=== PATIENT | male | born 1950 | race Hispanic/Latino ===

== ENCOUNTER 2020-01-27 11:48 | Inpatient (IN) | payer BC ==
[~2020-01-27] VITALS: Ht 157.5 cm; Wt 101.9 kg
[2020-01-27 13:36] LABS: BASOPHILS # (AUTO) 0.1 (0.0-0.1); BASOPHILS % 0.6 % (0.0-1.0); EOSINOPHILS # (AUTO) 0.3 (0.0-0.4); EOSINOPHILS % 3.6 % (0.0-6.0); HEMATOCRIT 32.9 % (38.2-49.6); HEMOGLOBIN 10.9 g/dL (14.0-18.0); LYMPHOCYTES # (AUTO) 1.3 (1.0-3.2); MEAN CORPUSCULAR HEMOGLOBIN 28.3 pg (28-32); MEAN CORPUSCULAR HGB CONC 33.1 g/dL (31-35); MEAN CORPUSCULAR VOLUME 85.5 fL (81-99); MONOCYTES # (AUTO) 0.5 (0.2-0.8); MONOCYTES % 6.6 % (4.4-11.3); NEUTROPHILS # (AUTO) 5.9 (2.1-6.9); NEUTROPHILS % 73.1 % (38.7-80.0); PLATELET COUNT 322 x10e3/uL (140-360); RED BLOOD COUNT 3.85 x10e6/uL (4.3-5.7); RED CELL DISTRIBUTION WIDTH 13.3 % (11.7-14.4)
[2020-01-27 13:57] LABS: CREATINE KINASE MB 1.5 ng/mL (0-5.0)
[2020-01-27 15:21] LABS: ALBUMIN 2.6 g/dL (3.5-5.0); ALBUMIN/GLOBULIN RATIO 0.8 (0.8-2.0); CALCIUM 7.9 mg/dL (8.4-10.2); CREATININE, SERUM 2.87 mg/dL (0.72-1.25)
[2020-01-27] MEDS ORDERED: CARVEDILOL3.125 MG PO (18:12)
[2020-01-27] MEDS ORDERED: VITAMIN D2 (18:12)
[2020-01-27] MEDS ORDERED: FERROUS SULFAT325 MG PO (18:12)
[2020-01-27] MEDS ORDERED: NOVOLIN N100 UNIT/1 (18:12)
[2020-01-27] MEDS ORDERED: ASPIRIN EC81 MG PO (18:12)
[2020-01-27] MEDS ORDERED: ATORVASTATIN CA40 MG PO (18:12)
[2020-01-27] MEDS ORDERED: LOSARTAN POTASS50 MG PO (18:12)
[2020-01-27] MEDS ORDERED: HYDRALAZINE HCL25 MG PO (18:12)
[2020-01-27] MEDS ORDERED: FUROSEMIDE40 MG PO (18:13)
[2020-01-27] MEDS: SODIUM CHLORIDE 0.9% 1000ML 1,000 ML IV SCH (18:17)
[2020-01-27 19:39] LABS: CLARITY,URINE SL CLOUDY (CLEAR); COLOR,URINE YELLOW (YELLOW); KETONES,URINE NEGATIVE (NEGATIVE); LEUKOCYTE ESTERASE ,URINE NEGATIVE (NEGATIVE); NITRITE,URINE NEGATIVE (NEGATIVE); PROTEIN,URINE DIPSTICK >=300 (NEGATIVE); URINE UROBILINOGEN 0.2 mg/dL (0.2 - 1)
[2020-01-27 19:55] LABS: BACTERIA,URINE MODERATE /HPF; EPITHELIAL CELLS,URINE FEW /LPF; WBC,URINE (MAN) 0-5 /HPF (0-5)
[2020-01-27] MEDS ORDERED: CARVEDILOL 3.125 MG TAB PO ONE (20:15)
[2020-01-27] MEDS ORDERED: LOSARTAN POTASSIUM 100 MG TAB PO ONE (20:15)
[2020-01-27] MEDS ORDERED: LOSARTAN POTASSIUM 25 MG TAB ONE (20:20)
[2020-01-27 21:04] VITALS: BP 182/80
[2020-01-27 21:53] VITALS: BP 181/90
[2020-01-28] VITALS (8 sets, daily range): BP systolic 153–194; BP diastolic 66–89
[2020-01-28] MEDS: SODIUM CHLORIDE 0.9% 1000ML 1,000 ML IV SCH ×4 (01:30→23:43)
[2020-01-28 06:17] LABS: BASOPHILS # (AUTO) 0.1 (0.0-0.1); BASOPHILS % 0.9 % (0.0-1.0); EOSINOPHILS # (AUTO) 0.3 (0.0-0.4); EOSINOPHILS % 3.5 % (0.0-6.0); HEMATOCRIT 29.3 % (38.2-49.6); HEMOGLOBIN 9.4 g/dL (14.0-18.0); LYMPHOCYTES # (AUTO) 1.4 (1.0-3.2); LYMPHOCYTES % 17.9 % (18.0-39.1); MEAN CORPUSCULAR HEMOGLOBIN 27.5 pg (28-32); MEAN CORPUSCULAR HGB CONC 32.1 g/dL (31-35); MEAN CORPUSCULAR VOLUME 85.7 fL (81-99); MONOCYTES # (AUTO) 0.7 (0.2-0.8); NEUTROPHILS # (AUTO) 5.3 (2.1-6.9); NEUTROPHILS % 68.6 % (38.7-80.0); PLATELET COUNT 287 x10e3/uL (140-360); RED BLOOD COUNT 3.42 x10e6/uL (4.3-5.7); RED CELL DISTRIBUTION WIDTH 13.2 % (11.7-14.4)
[2020-01-28 07:03] LABS: ALBUMIN 2.3 g/dL (3.5-5.0); ALBUMIN/GLOBULIN RATIO 0.8 (0.8-2.0); ANION GAP 9.8 mmol/L (8-16); CALCIUM 7.7 mg/dL (8.4-10.2); CREATININE, SERUM 2.65 mg/dL (0.72-1.25); POTASSIUM 3.8 mmol/L (3.5-5.1)
[2020-01-28] MEDS ORDERED: CARVEDILOL 3.125 MG TAB PO SCH ×2 (09:00→17:00)
[2020-01-28] MEDS: LOSARTAN POTASSIUM 100 MG TAB PO SCH ×2 (09:49→16:04)
[2020-01-28] MEDS: HYDRALAZINE HCL 20 MG/ML VIAL IV PRN (11:00)
[2020-01-28] MEDS: CARVEDILOL 12.5 MG TAB PO SCH (16:04)
[2020-01-28] MEDS: NPH, HUMAN INSULIN ISOPHANE 100 UNIT/1 ML 3ML VIAL SQ SCH (16:05)
[2020-01-28] MEDS ORDERED: LOSARTAN POTASSIUM 100 MG TAB PO SCH (17:00)
[2020-01-28] MEDS ORDERED: TAMSULOSIN HCL 0.4 MG CAP PO SCH (21:00)
[2020-01-28] MEDS: TERAZOSIN HCL 1 MG CAP PO SCH (21:01)
[2020-01-28] MEDS: ATORVASTATIN 40 MG TAB PO SCH (21:01)
[2020-01-28] MEDS: HYDRALAZINE HCL 25 MG TAB PO SCH (21:02)
[2020-01-29] VITALS (8 sets, daily range): BP systolic 133–189; BP diastolic 61–97
[2020-01-29] MEDS: HYDRALAZINE HCL 25 MG TAB PO SCH ×3 (05:29→21:22)
[2020-01-29 07:01] LABS: ANION GAP 10.7 mmol/L (8-16); CALCIUM 7.5 mg/dL (8.4-10.2); CREATININE, SERUM 2.65 mg/dL (0.72-1.25); POTASSIUM 3.7 mmol/L (3.5-5.1)
[2020-01-29] MEDS: CARVEDILOL 12.5 MG TAB PO SCH ×2 (08:53→15:44)
[2020-01-29] MEDS: FERROUS SULFATE 325 MG TAB PO SCH (08:53)
[2020-01-29] MEDS: ASPIRIN 81 MG ENTERIC COATED PO SCH (08:53)
[2020-01-29] MEDS: FUROSEMIDE 40 MG TAB PO SCH (08:53)
[2020-01-29] MEDS: LOSARTAN POTASSIUM 100 MG TAB PO SCH ×2 (08:53→15:45)
[2020-01-29] MEDS: NPH, HUMAN INSULIN ISOPHANE 100 UNIT/1 ML 3ML VIAL SQ SCH ×2 (08:54→16:31)
[2020-01-29] MEDS ORDERED: NIFEDIPINE CR 30 MG TAB PO SCH (09:00)
[2020-01-29] MEDS ORDERED: ACETAMINOPHEN 325 MG TAB PO PRN (15:30)
[2020-01-29] MEDS ORDERED: NICOTINE POLACRILEX 2 MG LOZG #24 MM PRN (15:30)
[2020-01-29] MEDS: HYDRALAZINE HCL 20 MG/ML VIAL IV PRN (15:45)
[2020-01-29] MEDS ORDERED: CEPACOL SORE THROAT LOZENGES PO PRN (16:00)
[2020-01-29] MEDS: TERAZOSIN HCL 1 MG CAP PO SCH (21:21)
[2020-01-29] MEDS: ATORVASTATIN 40 MG TAB PO SCH (21:22)
[2020-01-30 00:24] VITALS: BP 141/70
[2020-01-30 05:19] VITALS: BP 154/81
[2020-01-30] MEDS: HYDRALAZINE HCL 25 MG TAB PO SCH ×2 (05:33→13:42)
[2020-01-30 06:04] LABS: ANION GAP 10.7 mmol/L (8-16); CALCIUM 7.6 mg/dL (8.4-10.2); CREATININE, SERUM 2.83 mg/dL (0.72-1.25); POTASSIUM 3.7 mmol/L (3.5-5.1)
[2020-01-30 06:33] LABS: FERRITIN 38.9 ng/mL (21.81-274.66)
[2020-01-30 08:05] VITALS: BP 147/71
[2020-01-30] MEDS: ASPIRIN 81 MG ENTERIC COATED PO SCH (08:35)
[2020-01-30] MEDS: CARVEDILOL 12.5 MG TAB PO SCH ×2 (08:39→16:32)
[2020-01-30] MEDS: FUROSEMIDE 40 MG TAB PO SCH (08:41)
[2020-01-30] MEDS: FERROUS SULFATE 325 MG TAB PO SCH (08:41)
[2020-01-30] MEDS: LOSARTAN POTASSIUM 100 MG TAB PO SCH ×2 (08:41→16:33)
[2020-01-30] MEDS: NPH, HUMAN INSULIN ISOPHANE 100 UNIT/1 ML 3ML VIAL SQ SCH ×2 (08:43→16:33)
[2020-01-30 10:08] VITALS: BP 147/71
[2020-01-30 11:21] VITALS: BP 149/66
[2020-01-30 15:39] VITALS: BP 135/59
[2020-01-30 16:06] LABS: CREATININE,URINE RANDOM 171.19 mg/dL (63-166)
[2020-01-30 16:42] LABS: TOTAL PROTEIN 24HR, URINE 5889.8 mg/24hr (50-100); TOTAL PROTEIN, URINE 841.4 mg/dL (1-14)
== END 2020-01-30 18:45 | disposition home or self-care (01) | DRG 699 ==
LOC: ER 12:15 → ERHOLD 17:20 → MED/SURG3 21:04 → OBSVTOIN 01-29 08:30
PROVIDERS: ADMIT Internal Medicine; ATTEND Internal Medicine
DX: E11.22 Type 2 diabetes mellitus with diabetic chronic kidney disease (principal); Z68.41 Body mass index [BMI] 40.0-44.9, adult; N17.9 Acute kidney failure, unspecified; E66.01 Morbid (severe) obesity due to excess calories; E78.5 Hyperlipidemia, unspecified; Z86.73 Personal history of transient ischemic attack (TIA), and cerebral infarction without residual deficits; I12.9 Hypertensive chronic kidney disease with stage 1 through stage 4 chronic kidney disease, or unspecified chronic kidney disease; N18.4 Chronic kidney disease, stage 4 (severe); Z79.4 Long term (current) use of insulin; N40.0 Benign prostatic hyperplasia without lower urinary tract symptoms; R33.9 Retention of urine, unspecified; E83.51 Hypocalcemia; Z88.8 Allergy status to other drugs, medicaments and biological substances; Z87.891 Personal history of nicotine dependence; Z20.828 Contact with and (suspected) exposure to other viral communicable diseases
CPT/HCPCS: 36415; 51700; 74018; 74176; 80048; 80053; 81001; 81050; 82270; 82550; 82553; 82575; 82607; 82728; 82948; 83540; 83690; 84156; 84466; 84484; 85025; 85045; 87086; 99284; G0378; J0360; J7030; U0002